=== PATIENT | female | born 1975 | race Caucasian/White ===

== ENCOUNTER → 2016-12-18 | Outpatient (CLI) | payer OTHER ==
--- NOTE | 2016-12-18 11:53 | MM ---
Reason for exam: screening (asymptomatic). Baseline mammogram. History: Took hormonal contraceptives for 10 years. Physical Findings: Nurse did not find any significant physical abnormalities on exam. MG Screening Mammo w CAD Bilateral CC and MLO view(s) were taken. There are scattered fibroglandular densities. Finding: There are typically benign round, regional calcifications in the upper outer quadrant of the right breast. There is no discrete abnormality. These results were verbally communicated with the patient and result sheet given to the patient on 12/18/16. ASSESSMENT: Benign, BI-RAD 2 RECOMMENDATION: Routine screening mammogram of both breasts in 1 year.
== END | disposition home or self-care (01) ==
LOC: RADMAMWWP 10:48
PROVIDERS: ATTEND Obstetrics & Gynecology
DX: Z12.31 Encounter for screening mammogram for malignant neoplasm of breast (principal)

== ENCOUNTER → 2018-11-11 | Outpatient (CLI) | payer OTHER ==
--- NOTE | 2018-11-11 13:30 | MM ---
Reason for exam: screening (asymptomatic). Last mammogram was performed 1 year and 11 months ago. History: Took hormonal contraceptives for 10 years. Physical Findings: A clinical breast exam by your physician is recommended on an annual basis and results should be correlated with mammographic findings. MG 3D Screening Mammo W/Cad Bilateral CC and MLO view(s) were taken. Prior study comparison: December 18, 2016, bilateral MG screening mammo w CAD. There are scattered fibroglandular densities. There are benign appearing round calcifications in the right breast. There is no discrete abnormality. ASSESSMENT: Benign, BI-RAD 2 RECOMMENDATION: Routine screening mammogram of both breasts in 1 year.
== END | disposition home or self-care (01) ==
LOC: RADMAMWWP 08:57
PROVIDERS: ATTEND Obstetrics & Gynecology
DX: Z12.31 Encounter for screening mammogram for malignant neoplasm of breast (principal)
CPT/HCPCS: 77063; 77067

== ENCOUNTER → 2020-04-30 | Outpatient (CLI) | payer BC | END | disposition home or self-care (01) | LOC: LABWHC1 13:47 | PROVIDERS: ATTEND Physician Assistant | DX: R43.2 Parageusia (principal) | CPT/HCPCS: U0003; C9803; U0005 ==

== ENCOUNTER → 2020-06-22 | Outpatient (CLI) | payer BC ==
--- NOTE | 2020-06-25 12:28 | MM ---
Reason for exam: screening (asymptomatic). Last mammogram was performed 1 year and 7 months ago. History: Took hormonal contraceptives for 10 years. Physical Findings: A clinical breast exam by your physician is recommended on an annual basis and results should be correlated with mammographic findings. MG 3D Screening Mammo W/Cad Bilateral CC, MLO, and XCCL view(s) were taken. Prior study comparison: November 11, 2018, bilateral MG 3d screening mammo w/cad. December 18, 2016, bilateral MG screening mammo w CAD. There are scattered fibroglandular densities. There is no discrete abnormality. No significant changes when compared with prior studies. ASSESSMENT: Negative, BI-RAD 1 RECOMMENDATION: Routine screening mammogram of both breasts in 1 year.
== END ==
LOC: RADMAMWWP 10:55
PROVIDERS: ATTEND Obstetrics & Gynecology
DX: Z12.31 Encounter for screening mammogram for malignant neoplasm of breast (principal)
CPT/HCPCS: 77063; 77067

== ENCOUNTER → 2021-11-06 | Outpatient (CLI) | payer BC ==
--- NOTE | 2021-11-06 15:43 | XR ---
EXAMINATION TYPE: XR lumbosacral spine 5 views DATE OF EXAM: 11/06/2021 Comparison: 07/22/2011 Clinical History: 46-year-old female low back pain, M54.9 DORSALGIA, UNSPECIFIED Findings: Cholecystectomy clips. 5 lumbar type vertebral bodies. Hypertrophic facet arthropathy mid to lower juan jose mbar spine. Mild to moderate degenerative disc disease L4-L5 and L5-S1. Also T11-T12 and L1-L2. Verte bral body heights are preserved and alignment is maintained. No pars interarticularis defect identifi ed. Changes progressed from 2011. Impression: Mild to moderate degenerative disc disease T11-T12, L1-L2, L4-L5, and L5-S1. Additional facet arthrop athy mid to lower lumbar spine. Changes progressed from 2012. No vertebral compression collapse or ma lalignment.
--- NOTE | 2021-11-06 15:50 | XR ---
EXAMINATION TYPE: XR Hip Bilateral Complete DATE OF EXAM: 11/06/2021 COMPARISON: NONE HISTORY: 46-year-old female low back pain, M54.9, unspecified dorsalgia. TECHNIQUE: 2 views each side FINDINGS: Mild degenerative spurring at both hips. Relative preservation of hip joint space on both s ides. No acute fracture, subluxation, or dislocation. IMPRESSION: Mild bilateral hip OA. No acute osseous abnormality seen.
== END | disposition home or self-care (01) ==
LOC: RADXRMAIN 10:25
PROVIDERS: ATTEND Physician Assistant
DX: M51.26 Other intervertebral disc displacement, lumbar region (principal); M47.816 Spondylosis without myelopathy or radiculopathy, lumbar region; M16.0 Bilateral primary osteoarthritis of hip
CPT/HCPCS: 72110; 73521

== ENCOUNTER → 2023-03-12 | Outpatient (CLI) | payer BC ==
--- NOTE | 2023-03-16 19:21 | MM ---
Reason for Exam: Screening (asymptomatic). Last mammogram was performed 2 year(s) and 9 month(s) ago. Patient History: Menarche at age 18. First Full-Term at age 24. Currently using Hormonal Contraceptives, for 10 years. Risk Values: Adilia 5 year model risk: 0.7%. NCI Lifetime model risk: 7.8%. Prior Study Comparison: 12/18/2016 Bilateral Screening Mammogram, [facility]. 11/11/2018 Bilateral Screening Mammogram, [facility]. 06/22/2020 Bilateral Screening Mammogram, [facility]. Tissue Density: There are scattered fibroglandular densities. Findings: Analyzed By CAD. There is no suspicious group of microcalcifications or new suspicious mass in either breast. Overall Assessment: Negative, BI-RAD 1 Management: Screening Mammogram of both breasts in 1 year. . Patient should continue monthly self-breast exams. A clinical breast exam by your physician is recommended on an annual basis. This exam should not preclude additional follow-up of suspicious palpable abnormalities. Note on Adilia scores and lifetime risk: 1. A Adilia score greater than 3% is considered moderate risk. If this is the case, consider specialist referral to assess eligibility for a risk reducing agent. 2. If overall lifetime risk for the development of breast cancer is 20% or higher, the patient may qualify for future screening with alternating mammogram and breast MRI. Electronically signed and approved by: Malachi Nieto M.D. Radiologist
== END | disposition home or self-care (01) ==
LOC: RADMAMWWP 14:36
PROVIDERS: ATTEND Pediatrics
DX: Z12.31 Encounter for screening mammogram for malignant neoplasm of breast (principal)
CPT/HCPCS: 77063; 77067

== ENCOUNTER 2023-05-20 06:53 | Day surgery (SDC) | payer BC ==
[~2023-05-20 06:53] MED LIST: LACTATED RINGERS 1,000 ML IV SCH
[2023-05-20] MEDS: LACTATED RINGERS 1,000 ML IV ONE (07:16)
[2023-05-20 07:23] LABS: Glucose,Whole Blood 132 mg/dL (70-110)
[2023-05-20] MEDS ORDERED: LIDOCAINE 1% INJ 10MG/ML (20 ML MDV) ONE (07:29)
[2023-05-20] MEDS ORDERED: PROPOFOL 10 MG/ML 20 ML VIAL IV ONE (07:29)
--- NOTE | 2023-05-20 07:30 | P.GSHP ---
History of Present Illness H&P Date: 05/20/23 CHIEF COMPLAINT: GERD and colon screen HISTORY OF PRESENT ILLNESS: The patient is a 47-year-old female who presents with gastroesophageal reflux disease and need for colon screen. Upper and lower endoscopy were offered for further evaluation and management. PAST MEDICAL HISTORY: Please see list. PAST SURGICAL HISTORY: Please see list. MEDICATIONS: Please see list. ALLERGIES: Please see list. SOCIAL HISTORY: No illicit drug use FAMILY HISTORY: No reports of Crohn disease or ulcerative colitis. REVIEW OF ORGAN SYSTEMS: CONSTITUTIONAL: No reports of fevers or chills. GI: Denies any blood in stools or constipation. PHYSICAL EXAM: VITAL SIGNS: Stable GENERAL: Well-developed pleasant in no acute distress. HEENT: No scleral icterus. Extraocular movements grossly intact. Moist buccal mucosa. NECK: Supple without lymphadenopathy. CHEST: Unlabored respirations. Equal bilateral excursions. CARDIOVASCULAR: Regular rate and rhythm. Distal 2+ pulses. ABDOMEN: Soft, nondistended. MUSCULOSKELETAL: No clubbing, cyanosis, or edema. ASSESSMENT: 1. Gastroesophageal reflux disease 2. Colon screen. PLAN: 1. Recommend proceeding with an upper and lower endoscopy Past Medical History Past Medical History: Asthma, Diabetes Mellitus, Fibromyalgia, Liver Disease Additional Past Medical History / Comment(s): upper resp infection started 2 weeks ago exposed to Flu A, tx for flu with tamiflu and steroids still lingering cough.,arthritis,white coat syndrome. seasonal allergies, Fatty liver disease, enlarged spleen. Urinary leakage.IBS. hx of trouble eating with discomfort afterward since last April. History of Any Multi-Drug Resistant Organisms: None Reported Past Surgical History: Section, Cholecystectomy Additional Past Surgical History / Comment(s): tumor removed from rt little finger, D&C, tubal dye study. Rt patella repair. rt tibia bx for tumor. Additional Past Anesthesia/Blood Transfusion Reaction / Comment(s): some itchiness with anesthesia. Bio mom is ugly coming out of anesthesia Smoking Status: Former smoker, Light tobacco smoker - Past Family History Father History Unknown: Yes Mother Family Medical History: No Reported History Medications and Allergies Home Medications Medication Instructions Recorded Confirmed Type Apri Control 1 tab PO QAM 05/18/23 05/19/23 History Dulaglutide [Trulicity] 0.75 mg SQ SKINNER 05/18/23 05/19/23 History Famotidine 40 mg PO HS PRN 05/18/23 05/19/23 History Galcanezumab-Gnlm [Emgality Pen] 120 mg SQ Q30D 05/18/23 05/19/23 History Ibuprofen [Motrin] 800 mg PO Q8H PRN 05/18/23 05/19/23 History Prednison(Unk Dose) 1 dose PO DAILY 05/18/23 05/19/23 History buPROPion XL [Wellbutrin XL] 450 mg PO QAM 05/18/23 05/19/23 History metFORMIN HCL ER [Glucophage XR] 500 mg PO 1700 PRN 05/18/23 05/19/23 History methocarbamoL [Robaxin-750] 750 mg PO TID 05/18/23 05/19/23 History Atorvastatin [Lipitor] 10 mg PO HS 05/19/23 05/19/23 History Cetirizine HCl [Zyrtec] 10 mg PO DAILY PRN 05/19/23 05/19/23 History Unk Multi Vitamin 1 tab PO DAILY 05/19/23 05/19/23 History Allergies Allergy/AdvReac Type Severity Reaction Status Date / Time latex Allergy red skin. Verified 05/19/23 11:12 Surgical - Exam Vital Signs Temp Pulse Resp BP Pulse Ox 98 F 100 18 141/90 97 05/20/23 07:15 05/20/23 07:15 05/20/23 07:15 05/20/23 07:15 05/20/23 07:15 Results - Labs Abnormal Lab Results - Last 24 Hours (Table) 05/20/23 Range/Units 07:20 POC Glucose (mg/dL) 132 H (70-110) mg/dL
--- NOTE | 2023-05-20 07:42 | P.PCN ---
Date of Procedure: 05/20/23 Description of Procedure: PREOPERATIVE DIAGNOSIS: Gastroesophageal reflux disease. Morbid obesity. POSTOPERATIVE DIAGNOSIS: Gastroesophageal reflux disease. Bile reflux esophagitis Morbid obesity. Gastritis. Diaphragmatic hiatal hernia OPERATION: Esophagogastroduodenoscopy with biopsies along esophagus, antrum and duodenum SURGEON: Caro Palomino MD ANESTHESIA: MAC. INDICATIONS: The patient is a 47-year-old female who presents with reflux disease. Benefits and risks of the procedure were described. Informed consent was obtained. DESCRIPTION: The patient was brought into the endoscopy suite and laid in the left lateral decubitus position. An Olympus gastroscope was passed along the posterior oropharynx down to the distal esophagus where the squamocolumnar junction was encountered at 40 cm from the incisors. The stomach was entered and bile reflux was found. Additional findings are listed below. Biopsies with cold forceps were obtained of the antrum. The first through third portion of the duodenum was examined. Retroflexion of the scope confirmed Hill grade 2 lower esophageal valve. The squamocolumnar junction demonstrated LA grade B erosive esophagitis. The stomach was desufflated. The patient tolerated the procedure well. FINDINGS: Squamocolumnar junction 40 cm from the incisors. Diaphragmatic hiatus at 41 cm. Hiatal hernia, 1 cm Hill grade 2 lower esophageal valve. LA grade A erosive esophagitis. Biopsies obtained Biopsies obtained of the duodenum. Chronic gastritis with biopsies obtained. Bile reflux RECOMMENDATIONS: Upper endoscopy as needed.
--- NOTE | 2023-05-20 07:59 | P.PCN ---
Date of Procedure: 05/20/23 Description of Procedure: PREOPERATIVE DIAGNOSIS: Colonoscopy screening. POSTOPERATIVE DIAGNOSIS: Colonoscopy screening. OPERATION: Colonoscopy to the cecum, ileocecal valve and appendiceal orifice. SURGEON: Caro Palomino MD. ANESTHESIA: MAC. INDICATIONS: The patient is a 47-year-old female who presents for colonoscopy screening. Benefits and risks were described and informed consent was obtained. DESCRIPTION OF PROCEDURE: The patient had undergone Suprep. The patient had been brought into the operating room and laid in the left lateral decubitus position. After adequate intravenous sedation, the rectum was examined with 2% lidocaine jelly. No external hemorrhoids were encountered. The rectal tone was within normal limits. No lesions were palpated in the rectal vault. An Olympus colonoscope was advanced until the cecum, ileocecal valve and appendiceal orifice were clearly viewed. The prep was excellent. No scattered diverticulosis was encountered. No colonic polyps were found. No evidence of focal colitis was found. Retroflexion of the scope demonstrated grade 1 internal hemorrhoids without active bleeding or inflammation. The colon was desufflated. The patient had tolerated the procedure well. Withdrawal time was over 6 minutes. FINDINGS: Aronchick preparation quality scale 1 (1-5) Internal hemorrhoids, grade 1 No external prolapsed hemorrhoids. No arteriovenous malformations. No adenomatous polyps. No focal colitis. RECOMMENDATIONS: Lower endoscopy 10 years, 2033 Plan - Discharge Summary Discharge Rx Participant: No New Discharge Prescriptions: Continue Apri Control 1 tab PO QAM buPROPion XL [Wellbutrin XL] 450 mg PO QAM Galcanezumab-Gnlm [Emgality Pen] 120 mg SQ Q30D metFORMIN HCL ER [Glucophage XR] 500 mg PO 1700 PRN PRN Reason: diet methocarbamoL [Robaxin-750] 750 mg PO TID Cetirizine HCl [Zyrtec] 10 mg PO DAILY PRN PRN Reason: Allergy Symptoms Unk Multi Vitamin 1 tab PO DAILY Atorvastatin [Lipitor] 10 mg PO HS Prednison(Unk Dose) 1 dose PO DAILY Ibuprofen [Motrin] 800 mg PO Q8H PRN PRN Reason: Pain Famotidine 40 mg PO HS PRN PRN Reason: reflux Dulaglutide [Trulicity] 0.75 mg SQ SKINNER Discharge Medication List Apri Control 1 tab PO QAM 05/18/23 [History] Dulaglutide [Trulicity] 0.75 mg SQ SKINNER 05/18/23 [History] Famotidine 40 mg PO HS PRN 05/18/23 [History] Galcanezumab-Gnlm [Emgality Pen] 120 mg SQ Q30D 05/18/23 [History] Ibuprofen [Motrin] 800 mg PO Q8H PRN 05/18/23 [History] Prednison(Unk Dose) 1 dose PO DAILY 05/18/23 [History] buPROPion XL [Wellbutrin XL] 450 mg PO QAM 05/18/23 [History] metFORMIN HCL ER [Glucophage XR] 500 mg PO 1700 PRN 05/18/23 [History] methocarbamoL [Robaxin-750] 750 mg PO TID 05/18/23 [History] Atorvastatin [Lipitor] 10 mg PO HS 05/19/23 [History] Cetirizine HCl [Zyrtec] 10 mg PO DAILY PRN 05/19/23 [History] Unk Multi Vitamin 1 tab PO DAILY 05/19/23 [History] Follow up Appointment(s)/Referral(s): Caro Palomino MD [STAFF PHYSICIAN] - 06/09/23 3:15 pm Patient Instructions/Handouts: GERD (Gastroesophageal Reflux Disease) (DC) Activity/Diet/Wound Care/Special Instructions: Repeat colonoscopy 2033 Discharge Disposition: HOME SELF-CARE
[2023-05-20 08:28] LABS: Glucose,Whole Blood 143 mg/dL (70-110)
[2023-05-20 08:33] VITALS: BP 144/95; PULSE 83; RESP 17; TEMP 97
== END 2023-05-20 08:47 | disposition home or self-care (01) ==
LOC: ORWHC2ENDO 06:53
PROVIDERS: ATTEND Surgery Plastic and Reconstructive Surgery
DX: Z12.11 Encounter for screening for malignant neoplasm of colon (principal); K29.50 Unspecified chronic gastritis without bleeding; K64.0 First degree hemorrhoids; E11.9 Type 2 diabetes mellitus without complications; E66.01 Morbid (severe) obesity due to excess calories; J45.909 Unspecified asthma, uncomplicated; K21.00 Gastro-esophageal reflux disease with esophagitis, without bleeding; K44.9 Diaphragmatic hernia without obstruction or gangrene; K76.0 Fatty (change of) liver, not elsewhere classified; M79.7 Fibromyalgia; Z87.891 Personal history of nicotine dependence; Z90.49 Acquired absence of other specified parts of digestive tract; Z91.040 Latex allergy status; Z79.899 Other long term (current) drug therapy; Z79.84 Long term (current) use of oral hypoglycemic drugs; Z79.85 Long-term (current) use of injectable non-insulin antidiabetic drugs; Z68.42 Body mass index [BMI] 45.0-49.9, adult
CPT/HCPCS: 81025; 88305; 45378; 43239; J2001; J2704

== ENCOUNTER → 2023-07-23 | Outpatient (CLI) | payer BC ==
--- NOTE | 2023-07-23 14:23 | XR ---
EXAMINATION TYPE: XR chest 2V, XR thoracic spine 4 views complete DATE OF EXAM: 07/23/2023 COMPARISON: None HISTORY: 47 year-old female M54.6, thoracic spine pain FINDINGS: Chest: The cardiomediastinal silhouette, aorta, and pulmonary vasculature are within normal limits. Lungs an d pleural spaces are clear. Thoracic spine: 12 rib bearing thoracic vertebral bodies. All pedicles are visualized. Cholecystectomy clips. Mild t o moderate endplate spondylosis mid to lower thoracic spine. Vertebral body heights are preserved and alignment is maintained. IMPRESSION: 1. Chest: No acute cardiopulmonary process. 2. Thoracic spine: Mild to moderate degenerative disc disease mid to lower thoracic spine. No vertebr al compression collapse or malalignment.
== END | disposition home or self-care (01) ==
LOC: RADXRMAIN 09:23
PROVIDERS: ATTEND Chiropractor
DX: M51.34 Other intervertebral disc degeneration, thoracic region (principal)
CPT/HCPCS: 71046; 72072